=== PATIENT | male | born 1975 | race Caucasian/White ===

== ENCOUNTER 2020-07-18 03:19 | Emergency (ER) | payer OTHER ==
[~2020-07-18] VITALS: Ht 165.1 cm; Wt 79.2 kg
--- NOTE | 2020-07-18 04:12 | RAD ---
XR HAND_LEFT 3 VIEWS History: Reason: trauma / Spl. Instructions: / History: . Pain Technique: 3 views left hand Comparison: None. Findings: Normal alignment. No fracture. Dorsal hand soft tissue swelling. Impression: 1. No acute osseous abnormality. Electronically signed by: Agustin Banks DO (07/18/2020 4:10 AM) [facility]
[2020-07-18] MEDS ORDERED: LIDOCAINE 2% Multi-Dose 20 ML VIAL. IJ ONE (04:15)
[2020-07-18] MEDS ORDERED: DIPH,PERTUSS(ACELL),TET VAC/PF 0.5 ML SYRINGE. VAX IM ONE (05:15)
[2020-07-18] MEDS ORDERED: CEPH500C PO (05:20)
--- NOTE | 2020-07-18 05:21 | ED.ADGEN ---
Past Medical History Past Medical History: No Pertinent History Past Surgical History: No Surgical History Smoking Status: Never Smoker Alcohol Use: None General Adult EDM: Chief Complaint: HAND PROBLEM HPI: HPI: Patient is a 45-year-old male who presents to the emergency room after getting his hand caught between a hitch and something else. Patient states that something fell and he went to catch it when his hand got pinned between the head 2. He states he was able to control the bleeding without difficulty. He states he has full range of motion of his hand and denies any kind of sensation loss. He has never had anything like this before. He has had stitches before without any complications. Review of Systems: Review of Systems: Complete ROS is negative unless otherwise documented in HPI Current Medications: Current Medications Medications (Trade) Dose Ordered Sig/[place] Start Time Stop Time Status Last Admin Dose Admin Diphtheria/ Tetanus/Acell Pertussis (ADACEL TDap SYRINGE) 0.5 ml ONCE ONCE 07/18/20 05:15 07/18/20 05:16 DC 07/18/20 05:20 0.5 ML Lidocaine HCl (Lidocaine 2% 20ml Vial) 20 ml 1X ONCE 07/18/20 04:15 07/18/20 04:16 DC 07/18/20 04:15 20 ML Allergies: Allergies: Allergies Coded Allergies Type Severity Reaction Last Updated Verified No Known Drug Allergies 07/18/20 No Physical Exam: PE: General: Awake, alert, NAD. Well Nourished, well hydrated. Cooperative HEENT: Atraumatic, EOMI, PERRL, airway patent, moist oral mucosa Neck: Supple, trachea midline Respiratory: CTA bilaterally, normal effort, no wheezing/crackles CV: RRR, no murmur, cap refill <2 GI: Soft, nondistended, nontender, no masses MSK: Left hand: Full range of motion of all 5 fingers, normal sensation, less than 2-second capillary refill Skin: Warm, dry. Left hand: Laceration extending from the palmar surface in between fingers 3 and 4 into the dorsal surface with controlled bleeding Neuro: A&O x3, speech NL, sensory and motor grossly intact, no focal deficits Psych: Normal affect, normal mood, not suicidal or homicidal Current Patient Data: Vital Signs: Vital Signs Date Time Temp Pulse Resp B/P (MAP) Pulse Ox O2 Delivery O2 Flow Rate FiO2 07/18/20 05:25 82 162/90 (114) 96 Room Air 07/18/20 03:20 98.8 18 98.8 EKG: EKG: [] Heart Score: C/O Chest Pain: N/A Risk Factors: Risk Factors: DM, Current or recent (<one month) smoker, HTN, HLP, family history of CAD, obesity. Risk Scores: Score 0 - 3: 2.5% MACE over next 6 weeks - Discharge Home Score 4 - 6: 20.3% MACE over next 6 weeks - Admit for Clinical Observation Score 7 - 10: 72.7% MACE over next 6 weeks - Early Invasive Strategies Radiology/Procedures: Radiology/Procedures: [] Course & Med Decision Making: Course & Med Decision Making Pertinent Labs and Imaging studies reviewed. (See chart for details) Patient is a 45-year-old male presents to the emergency room with a laceration to his hand. He has full range of motion of the hand and no tendons appear to be damaged. Patient has no sensation changes. Laceration was complicated, however it was repaired here in the emergency room. Patient will have sutures removed in 10 days. Patient's test results and vitals while in the ED were fully reviewed and discussed with the patient. Patient is stable and at this time does not need admission to the hospital. We have discussed strict return precautions and the importance of following up with their Primary Care Physician. Patient stated understanding and was given an opportunity to ask any questions. Patient is in agreement with plan. Dragon Disclaimer: Dragon Disclaimer: This electronic medical record was generated, in whole or in part, using a voice recognition dictation system. PROCEDURE Procedure Laceration Repair Performed by: Rush Rodriguez MD Consent: obtained verbally from patient. Risks and benefits were discussed prior to consent Time out performed prior to procedure Location: Left hand extending from dorsal to palmar surface between fingers 3 and 4 Length: 7 cm Foreign bodies: No foreign bodies Tendon involvement: none Neurovascularly intact Local anesthetic: lidocaine with epinephrine Anesthetic total: 9 mils Patient sedated: no Preparation: Patient was prepped and draped in usual sterile fashion. Wound was cleaned extensively with water Amount of clean: Standard Deep stitches: no Skin closure: 4-0 nylon Number of sutures: 11 Technique: simple interrupted Approximation: closed Approximation difficulty: complicated Patient tolerated procedure well Departure Departure Impression: Primary Impression: Complicated laceration of hand Disposition: HOME / SELF CARE / HOMELESS Condition: STABLE Referrals: NO PCP (PCP) Patient Instructions: Laceration Care, Adult Additional Instructions: Thank you for choosing [facility]. 1. Suture should be removed in 10 days. You have a total of 11 sutures 2. You may wash your hands is normal, however you should not soak your hands 3. Watch her hand closely for any signs of infection including redness, foul- smelling drainage, significant swelling. If you do develop any of these symptoms you should be seen at your local emergency room or call your local orthopedic surgeon to be seen immediately 4. If you find that you are unable to fully move your fingers or after the anesthetic wears off are unable to feel your fingers you should be seen again. Scripts Cephalexin (CEPHALEXIN) 500 Mg Capsule 1 CAP PO BID, #[id number] CAP Prov: RUSH RODRIGUEZ MD 07/18/20 RUSH RODRIGUEZ MD Jul 18, 2020 05:21
[2020-07-18 05:25] VITALS: BP 162/90
== END 2020-07-18 05:25 | disposition home or self-care (01) ==
LOC: ER 03:19
DX: S61.412A Laceration without foreign body of left hand, initial encounter (principal); W20.8XXA Other cause of strike by thrown, projected or falling object, initial encounter; Y93.89 Activity, other specified; Y92.89 Other specified places as the place of occurrence of the external cause; Y99.8 Other external cause status
CPT/HCPCS: 12002; 73130; 90471; 90715; 99285-25